=== PATIENT | male | born 2000 | race Caucasian/White ===

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

== ENCOUNTER 2018-05-21 12:04 | Emergency (ER) | payer MEDICAID, OTHER ==
[~2018-05-21] VITALS: Ht 170.2 cm; Wt 59.0 kg
[2018-05-21 12:17] VITALS: BP 153/66
== END 2018-05-21 14:55 | disposition home or self-care (01) ==
LOC: ER 12:04
DX: L02.212 Cutaneous abscess of back [any part, except buttock and flank] (principal); F12.10 Cannabis abuse, uncomplicated